=== PATIENT | female | born 1995 | race African-American/Black ===

== ENCOUNTER → 2021-11-10 15:23 | Outpatient (CLI) | payer OTHER, SELFPAY ==
--- NOTE | ~2021-11-10 | US_ITS ---
EXAMINATION: US OB <= 14 weeks fetus DATE: 11/10/2021 15:53 INDICATION: Uncertain dating of . TECHNIQUE: Real-time transabdominal pelvic ultrasound was performed. COMPARISON: None. FINDINGS: The uterus measures 16.0 x 7.1 x 10.2 cm. There is an intrauterine gestational sac. The crown r ump length measures 6.2 cm, which correlates with an estimated gestational age of 12 weeks and 4 day( s) (+/-) 1 week(s) and 1 day(s). heart motion is identified measuring 159 beats per minute (bpm ) by M-mode Doppler. There is a small hypoechoic subchorionic hematoma measuring 1.5 x 0.5 x 1.3 cm. The right ovary measures 4.1 x 2.1 x 3.5 cm. The left ovary measures 3.2 x 2.3 x 3.3 cm. There is no free fluid in the pelvis. IMPRESSION: 1. Single living intrauterine gestation with estimated date of delivery of 05/21/2022. 2. Small subchorionic hematoma. Reviewed, dictated and finalized at location A. IMPRESSION: 1. Single living intrauterine gestation with estimated date of delivery of . 2. Small subchorionic hematoma.
== END ==
PROVIDERS: PCP Obstetrics & Gynecology Gynecology; Visit Provider Nurse Practitioner
DX: O36.8911 Maternal care for other specified fetal problems, first trimester, fetus 1 (principal); Z3A.12 12 weeks gestation of pregnancy
CPT/HCPCS: 76801

== ENCOUNTER → 2021-12-08 10:42 | Outpatient (CLI) | payer OTHER, SELFPAY ==
--- NOTE | ~2021-12-08 | US_ITS ---
EXAMINATION: US OB limited DATE: 12/08/2021 11:08 INDICATION: Subchorionic hematoma during second trimester TECHNIQUE: Real-time ultrasound of the pelvis was performed. The interpreting radiologist was not pre sent for the study. COMPARISON: None. FINDINGS: There is a single living fetus in variable presentation. The placenta is posterior and not low-lying with caudal margin 4.3 cm from the internal cervical os. Small subchorionic hematoma with hypoechoic pocket measuring 12 x 10 x 9 mm at the right superior aspect of the placenta and 2.5 x 2.6 x 0.8 cm along the right inferior margin of the placenta. On the cine images there is suggestion of a small co mmunicating tract extending along the right margin of the placenta. heart rate is 163 beats per minute (bpm). The amniotic fluid volume is subjectively normal. IMPRESSION: 1. Single living fetus in variable presentation with heart rate of 163 bpm. 2. Increasing small subchorionic hematoma extending from superior to inferior along the right margin of the posterior placenta. Reviewed, dictated and finalized at location A. IMPRESSION: 1. Single living fetus in variable presentation with heart rate of 163 b pm. 2. Increasing small subchorionic hematoma extending from superior to inferior a long the right margin of the posterior placenta.
== END ==
PROVIDERS: PCP Obstetrics & Gynecology Gynecology; Visit Provider Obstetrics & Gynecology Gynecology
DX: O36.8920 Maternal care for other specified fetal problems, second trimester, not applicable or unspecified (principal); Z3A.00 Weeks of gestation of pregnancy not specified
CPT/HCPCS: 76815

== ENCOUNTER → 2021-12-23 10:00 | Outpatient (CLI) | payer OTHER, SELFPAY ==
--- NOTE | ~2021-12-23 | US_ITS ---
EXAMINATION: US OB /maternal detail DATE: 12/23/2021 10:40 INDICATION: Second trimester anatomic survey TECHNIQUE: Real-time ultrasound of the pelvis was performed. COMPARISON: None. FINDINGS: There is a single living fetus in breech presentation. The placenta is posterior and 1 cm from the in ternal cervical os. heart rate is 168 beats per minute (bpm). cardiac activity and movement are noted. The amniotic fluid index is subjectively normal. Four chamber heart and upper lip are not well imaged. The following anatomy was identified as n ormal: 3 vessel cord cord insertion kidneys urinary bladder stomach spine diaphragm ventricles cisterna magna cerebellum The following biometric data were obtained: Biparietal diameter (BPD): 4.3 cm; head circumference (HC): 16.3 cm; abdominal circumference (AC): 12 .9 cm; femur length (FL): 2.8 cm. These measurements are concordant. Estimated weight is 248 g +/- 37 g, which correlates with the 40th percentile when 05/21/2022 i s used as estimated date of delivery. As single measurements, these parameters are each equal to the following estimated gestational ages w ith ranges of +/- 2 standard deviations: BPD: 19 weeks 1 days ( 17 weeks 3 days - 20 weeks 6 days). HC: 19 weeks 0 days ( 17 weeks 4 days - 20 weeks 4 days). AC: 18 weeks 4 days ( 16 weeks 3 days - 20 weeks 4 days). FL: 18 weeks 4 days ( 16 weeks 6 days - 20 weeks 3 days). estimated gestational age based solely on measurements from this exam is 18 weeks 6 days +/- 1 weeks 2 days. IMPRESSION: 1. Single living fetus in breech presentation. 2. Estimated weight is 248 g +/- 37 g, which correlates with the previous percentile when 05/21 is used as estimated date of delivery. 3. Low-lying placenta. 4. Four chamber heart and upper lip not well imaged. Reviewed, dictated and finalized at location F. IMPRESSION: 1. Single living fetus in breech presentation. 2. Estimated weight is 248 g +/- 37 g, which correlates with the previous percentile when 05/21/2022 is used as estimated date of delivery. 3. Low-lying placenta. 4. Four chamber heart and upper lip not well imaged.
== END ==
PROVIDERS: PCP Obstetrics & Gynecology Gynecology; Visit Provider Obstetrics & Gynecology Gynecology
DX: Z36.9 Encounter for antenatal screening, unspecified (principal); O44.42 Low lying placenta NOS or without hemorrhage, second trimester; Z3A.00 Weeks of gestation of pregnancy not specified
CPT/HCPCS: 76805

== ENCOUNTER → 2022-01-07 09:41 | Outpatient (CLI) | payer OTHER, SELFPAY ==
--- NOTE | ~2022-01-07 | US_ITS ---
EXAMINATION: US OB follow up DATE: 01/07/2022 10:15 INDICATION: Low lying placenta. TECHNIQUE: Real-time ultrasound of the pelvis was performed. COMPARISON: Ultrasound 12/23/2021, 12/08/2021, 11/10/2021 FINDINGS: There is a single living fetus in vertex presentation. The placenta is posterior, 6.0 cm in the cerv ix. There is no subchorionic hematoma. heart rate is 161 beats per minute (bpm). The amniotic f luid volume is subjectively normal. The heart is normal. The lip is normal. IMPRESSION: 1. Single living fetus in vertex presentation. 2. Normal placenta. 3. Normal heart and lip. Reviewed, dictated and finalized at location A.
== END ==
PROVIDERS: PCP Obstetrics & Gynecology Gynecology; Visit Provider Obstetrics & Gynecology Gynecology
DX: O44.42 Low lying placenta NOS or without hemorrhage, second trimester (principal); Z3A.19 19 weeks gestation of pregnancy
CPT/HCPCS: 76816

== ENCOUNTER → 2022-02-28 09:15 | Outpatient (CLI) | payer OTHER, SELFPAY ==
--- NOTE | ~2022-02-28 | US_ITS ---
EXAMINATION: US OB follow up DATE: 02/28/2022 09:39 INDICATION: Size greater than dates during third trimester TECHNIQUE: Real-time ultrasound of the pelvis was performed. The interpreting radiologist was not pre sent for the study. COMPARISON: 01/07/2022 FINDINGS: There is a single living fetus in vertex presentation. The placenta is posterior and 8.4 cm from the internal cervical loss. cardiac activity and movement are noted. heart ra te is 150 beats per minute (bpm). The amniotic fluid index is 15.3 cm which is normal (normal range: 9.4 cm to 22.8 cm). The following biometric data were obtained: Biparietal diameter (BPD): 7.5 cm; head circumference (HC): 28.3 cm; abdominal circumference (AC): 24 .9 cm; femur length (FL): 5.2 cm. The femoral length to biparietal diameter ratio is greater than two standard deviations below the veronica n. These measurements are otherwise concordant. Estimated weight is 1319 g +/- 197 g, which correlates with the 65th percentile when 05/21/2022 is used as estimated date of delivery. As single measurements, these parameters are each equal to the following estimated gestational ages w ith ranges of +/- 2 standard deviations: BPD: 30 weeks 1 days ( 27 weeks 1 days - 33 weeks 2 days). HC: 31 weeks 0 days ( 28 weeks 0 days - 34 weeks 0 days). AC: 29 weeks 1 days ( 27 weeks 0 days - 31 weeks 2 days). FL: 28 weeks 0 days ( 25 weeks 6 days - 30 weeks 0 days). estimated gestational age based solely on measurements from this exam is 29 weeks 4 days +/- 2 weeks 0 days. IMPRESSION: 1. Single living fetus in vertex presentation. 2. Estimated weight is 1319 g +/- 197 g, which correlates with the 65th percentile when 022 is used as estimated date of delivery. 3. Normal amniotic fluid index. 4. Femoral length to biparietal diameter ratio greater than two standard deviations below the mean. Reviewed, dictated and finalized at location B. IMPRESSION: 1. Single living fetus in vertex presentation. 2. Estimated weight is 1319 g +/- 197 g, which correlates with the 65th p ercentile when 05/21/2022 is used as estimated date of delivery. 3. Normal amniotic fluid index. 4. Femoral length to biparietal diameter ratio greater than two standard deviat ions below the mean.
== END ==
PROVIDERS: PCP Advanced Practice Midwife; Visit Provider Advanced Practice Midwife
DX: O24.414 Gestational diabetes mellitus in pregnancy, insulin controlled (principal); Z79.4 Long term (current) use of insulin; Z3A.29 29 weeks gestation of pregnancy
CPT/HCPCS: 76816

== ENCOUNTER → 2022-03-30 14:54 | Outpatient (CLI) | payer OTHER, SELFPAY ==
--- NOTE | ~2022-03-30 | US_ITS ---
EXAMINATION: US OB follow up DATE: 03/30/2022 15:20 INDICATION: Gestational diabetes TECHNIQUE: Real-time transabdominal obstetric ultrasound. FINDINGS: Comparison to multiple prior studies sequentially, with oldest reviewed study dated 022. There is a single living fetus in vertex presentation. The placenta is posterior without placenta pr evia. cardiac activity and movement is noted with a heart rate of 151 beats per minute. T he amniotic fluid volume is normal. CHITRA measures 15.3 cm. The following biometric data were obtained: BPD: 86mm corresponds to gestational age 34 weeks 4 days. Head circumference: 322mm corresponds to gestational age 36 weeks 2 days. Abdominal circumference: 284mm corresponds to gestational age 32 weeks 3 days. Femur length: 63mm corresponds to gestational age 32 weeks 4 days. Estimated weight: 2106grams +/- 316grams, 55.1% by Hadlock method.] IMPRESSION: 1. Single living intrauterine in vertex presentation with an estimated gestational age of 32 weeks 4 days by inititial ultrasound. Appropriate interval growth. 2. Normal placenta. Reviewed, dictated and finalized at location A. IMPRESSION: 1. Single living intrauterine in vertex presentation with an estimat ed gestational age of 32 weeks 4 days by inititial ultrasound. Appropriate int erval growth. 2. Normal placenta.
== END ==
PROVIDERS: PCP Advanced Practice Midwife; Visit Provider Advanced Practice Midwife
DX: O24.414 Gestational diabetes mellitus in pregnancy, insulin controlled (principal); Z3A.32 32 weeks gestation of pregnancy
CPT/HCPCS: 76816

== ENCOUNTER 2022-04-06 05:13 | Observation (INO) | payer OTHER, SELFPAY ==
[2022-04-06] VITALS (43 sets, daily range): BP systolic 115–140; BP diastolic 54–84; PULSE 84–137; TEMP 36.8–37; O2SAT 98–100; BMI 46.6
--- NOTE | ~2022-04-06 | US_ITS ---
EXAMINATION: US right upper quadrant DATE: 04/06/2022 08:10 INDICATION: Right upper quadrant abdominal pain. Third trimester of . TECHNIQUE: Multiple grayscale and Doppler ultrasound images of the abdomen were obtained. COMPARISON: None FINDINGS: The visualized portions of the head and body of the pancreas are normal. The liver is anu l without focal lesion. There is normal flow in main portal vein. The gallbladder is normal in size a nd contains gallstones. No gallbladder wall thickening or sonographic Cedeno sign. The common duct is normal and measures 3 mm. IMPRESSION: 1. Cholelithiasis. No evidence of acute cholecystitis. Reviewed, dictated and finalized at location A.
[2022-04-06 06:07] LABS: Basophils Percent Auto 0.2 % (0.2-1.2); Hematocrit 35.1 % (37.0-47.0); Hemoglobin 10.8 g/dL (12.0-15.0); Immature Granulocyte Absolute 0.07 K/mm3 (0.00-0.031); Immature Granulocyte Percent A 0.5 % (0-0.5); Lymphocytes Absolute Auto 1.22 K/mm3 (0.9-3.2); Lymphocytes Percent Auto 9.5 % (18.3-44.2); Mean Corpuscular HGB Conc 30.8 g/dl (32-36); Mean Corpuscular Hemoglobin 26.7 pg (26-34); Mean Corpuscular Volume 86.7 fl (80-100); Mean Platelet Volume 10.8 fl (7.4-10.4); Monocytes Absolute Auto 0.7 K/mm3 (0.1-0.6); Monocytes Percent Auto 5.1 % (2.6-8.5); Neutrophils Absolute Auto 10.9 K/mm3 (1.3-6.7); Neutrophils Percent Auto 84.7 % (45.5-73.1); Platelet Count Result 294 k/mm3 (150-375); Red Blood Count 4.05 M/mm3 (4.2-5.4); Red Cell Distribution Width 15.9 % (11.5-14.5); White Blood Count 12.9 K/mm3 (4.5-10.0)
[2022-04-06 06:23] LABS: Lipase 43 U/L (23-300)
[2022-04-06 06:26] LABS: Alanine Aminotransferase 74 U/L (6-35); Alkaline Phosphatase 176 U/L (38-126); Anion Gap 13 mmol/L (8-16); Aspartate Amino Transferase 85 U/L (14-36); Bilirubin,Total 0.8 mg/dL (0.2-1.3); Blood Urea Nitrogen 8 mg/dL (7-17); Calcium 9.3 mg/dL (8.4-10.2); Carbon Dioxide 22 mmol/L (22-30); Chloride 105 mmol/L (98-107); Estimated Glomerular Filt Rate > 60; Glucose 125 mg/dL (65-110); Sodium 140 mmol/L (137-145)
--- NOTE | 2022-04-06 06:45 | OBADM ---
This patient, Enid Rogers, admitted to the OB room OB Post 117 for observation. Patient/family oriented to hospital policies and general routines including ID bracelet, bed and alarms, visiting hours, pain management, procedures, bathroom and other care routines, personal items, smoking policy, room service/diet, and visiting hours. Patient/Family are encouraged to report perceived risks to care and to ask questions if they do not understand what they are told or what they should do.
[2022-04-06] MEDS: LACTATED RINGERS 1,000 ML 999 ML IV CONT (07:02)
[2022-04-06 07:04] LABS: Add Urine Microscopic? YES; Appearance Urine Cloudy (Clear); Bacteria Urine Trace /hpf; Bilirubin Urine Negative (Negative); Blood Urine Negative (Negative); Color Urine Amber (Yellow); Glucose Urine UA Negative (Negative); Ketones Urine 1+ mg/dL (Negative); Leukocyte Esterase Ur Trace LEU/UL (Negative); Mucus Urine Rare /lpf; Nitrate Urine Negative (Negative); Protein Urine 1+ mg/dL (Negative); Specific Grav Ur 1.029 (1.001-1.035); Squamous Epithelial Cell Urine Many /hpf (Few); WBC Urine 0-3 /hpf
--- NOTE | 2022-04-06 08:05 | PC.NURSE ---
Pt back from U/S and Eliana GRIJALVAM in to see and assess pt. Bedside U/S confirms vertex presentation. Orders received. 24 hr urine started at 0520 with initial void.
--- NOTE | 2022-04-06 08:40 | PC.NURSE ---
Eliana GRIJALVAM informed of U/S report and pt has had one contraction since back from U/S.
[2022-04-06 09:10] LABS: Amylase 65 U/L (30-110); Uric Acid 3.5 mg/dL (2.5-7.5)
--- NOTE | 2022-04-06 09:11 | PC.NURSE ---
Dr. White's office notified of consult
[2022-04-06 09:27] LABS: Glucose Point of Care 105 mg/dl (65-105)
[2022-04-06 09:56] LABS: Total Protein Urine Random 8 mg/dL; Ur Ttl Prot Creatinine Ratio 0.03 mg/mg (0-0.20)
--- NOTE | 2022-04-06 11:04 | PM.CNGS ---
Assessment and Plan Assessment and plan (1) Cholelithiasis: Code(s): K80.20 - Calculus of gallbladder without cholecystitis without obstruction Status: Chronic Assessment and Plan: US showed cholelithiasis. No evidence of acute cholecystitis. Biliary colic is likely the cause of her abdominal pain. She has had multiple episodes of similar type pain in the past as well. Her abdominal pain has completely resolved and her exam is benign. We would recommend that she try to manage this with dietary modification and following a strict low fat diet to help prevent future attacks and complications from the gallstones. It is okay from our standpoint to discharge the patient today on a low fat diet and follow-up with Dr. White in our office after her to further discuss scheduling a laparoscopic cholecystectomy. Thank you for allowing us to see the patient in consultation. (2) Third trimester : Code(s): Z34.93 - Encounter for supervision of normal , unspecified, third trimester Status: Chronic Assessment and Plan: 33 weeks and it appears she may have gestational diabetes. Raises her risks with surgery. Recommend follow-up after her to discuss cholecystectomy. (3) Anemia during : Code(s): O99.019 - Anemia complicating , unspecified trimester Status: Chronic Plan I have discussed the patient's case and plan of care with Dr. White. History of Present Illness Consult details Consult date: 04/06/22 Reason for consult: gallstones Requesting physician: Anastasia Paredes MD Narrative: This is a 26-year-old woman who is 33 weeks gestation, who presented to the OB department with complaints of right upper quadrant abdominal pain overnight. She actually was in the OB department yesterday due to decreased movement, but movement improved and she was discharged yesterday. Last night for dinner, she ate chili with sour cream and cheese. She then went to bed and woke up around midnight with an acute onset of severe right upper quadrant abdominal pain. She developed nausea and 2 episodes of vomiting. She then decided to come into the ER for evaluation. She reports having similar episodes in the past, but the pain would improve with time. This time her pain was persistent throughout the night. Right upper quadrant abdominal ultrasound showed cholelithiasis, but no other evidence of cholecystitis. [place] [address], total bilirubin 0.8, normal lipase, AST 85, ALT 74, alk-phos 176. She has been admitted to the OB department. Our service was consulted for cholelithiasis. This morning, her abdominal pain has completely resolved. She denies any pain at this time. Denies any nausea or vomiting since admission. Only previous abdominal surgery was a delivery. Review of Systems Review of Systems: All systems reviewed & are unremarkable except as noted in HPI and below PMFSH Past Medical History Medical History (Updated 04/06/22 @ 11:22 by KEITH Olmos) Anemia during Surgical History Surgical History History of delivery Family History Family History Other No significant family history Social History Social History Smoking status: Never smoker Alcohol intake: never Substance use: never Meds Home Medications and Allergies Home Medications Medication Instructions Recorded Confirmed Type aspirin 81 mg tablet 81 mg PO DAILY 04/05/22 04/06/22 History prenat.vits,kerry,exs-[id number] 1 tablet PO DAILY 04/05/22 04/06/22 History ergocalciferol (vitamin D2) 1,250 50,000 unit PO WEEKLY 04/06/22 04/06/22 History mcg (50,000 unit) capsule ferrous sulfate 325 mg (65 mg 325 mg PO DAILY 04/06/22
[2022-04-06 11:16] LABS: Glucose Point of Care 127 mg/dl (65-105)
--- NOTE | 2022-04-06 17:24 | PM.OBTRLD ---
OB - Triage/Final Diagnosis Visit Information Reason for evaluation: other (abdominal pain. Cholelithiasis) Comments/Additional reasons for admission: I have assessed the risk for this patient, Enid Rogers, and determined that she would benefit from observation care. Evaluation Laboratory results: Laboratory Tests 04/06/22 04/06/22 04/06/22 05:51 05:51 05:51 WBC 12.9 H RBC 4.05 L Hgb 10.8 L Hct 35.1 L MCV 86.7 MCH 26.7 MCHC 30.8 L RDW 15.9 H Plt Count 294 MPV 10.8 H Immature Gran % (Auto) 0.5 Neut % (Auto) 84.7 H Lymph % (Auto) 9.5 L Camp % (Auto) 5.1 Eos % (Auto) 0.0 Baso % (Auto) 0.2 Lymph # (Auto) 1.22 Camp # (Auto) 0.7 H Eos # (Auto) 0.0 Baso # (Auto) 0.0 Abs Immat Gran (auto) 0.07 H Absolute Neuts (auto) 10.9 H Absolute Nucleated RBC 0.0 Nucleated RBC % 0.0 Sodium 140 Potassium 4.0 Chloride 105 Carbon Dioxide 22 Anion Gap 13 BUN 8 Creatinine 0.70 Estim Creat Clear Calc Not Reportable Estimated GFR > 60 Glucose 125 H POC Capillary Glucose Uric Acid Calcium 9.3 Total Bilirubin 0.8 AST 85 H ALT 74 H Alkaline Phosphatase 176 H Total Protein 7.0 Albumin 4.0 Amylase Lipase 43 Urine Color Urine Appearance Urine pH Ur Specific [place] Urine Protein Urine Glucose (UA) Urine Ketones Ur Blood (Man) Urine Nitrate Urine Bilirubin Urine Urobilinogen Leukocyte Esterase Rfl Urine RBC Urine WBC Ur Squamous Epith Cells Urine Bacteria Urine Mucus U Random Total Protein Urine Creatinine Protein/Creat Ratio 2 04/06/22 04/06/22 04/06/22 06:52 08:27 08:27 WBC RBC Hgb Hct MCV MCH MCHC RDW Plt Count MPV Immature Gran % (Auto) Neut % (Auto) Lymph % (Auto) Camp % (Auto) Eos % (Auto) Baso % (Auto) Lymph # (Auto) Camp # (Auto) Eos # (Auto) Baso # (Auto) Abs Immat Gran (auto) Absolute Neuts (auto) Absolute Nucleated RBC Nucleated RBC % Sodium Potassium Chloride Carbon Dioxide Anion Gap BUN Creatinine Estim Creat Clear Calc Estimated GFR Glucose POC Capillary Glucose Uric Acid 3.5 Calcium Total Bilirubin AST ALT Alkaline Phosphatase Total Protein Albumin Amylase 65 Lipase Urine Color Sole Urine Appearance Cloudy H Urine pH 6.0 Ur Specific [place] 1.029 Urine Protein 1+ H Urine Glucose (UA) Negative Urine Ketones 1+ H Ur Blood (Man) Negative Urine Nitrate Negative Urine Bilirubin Negative Urine Urobilinogen 2.0 H Leukocyte Esterase Rfl Trace H Urine RBC 6-10 H Urine WBC 0-3 Ur Squamous Epith Cells Many H Urine Bacteria Trace Urine Mucus Rare U Random Total Protein 8 Urine Creatinine 234.0 Protein/Creat Ratio 2 0.03 04/06/22 04/06/22 09:24 11:09 WBC RBC Hgb Hct MCV MCH MCHC RDW Plt Count MPV Immature Gran % (Auto) Neut % (Auto) Lymph % (Auto) Camp % (Auto) Eos % (Auto) Baso % (Auto) Lymph # (Auto) Camp # (Auto) Eos # (Auto) Baso # (Auto) Abs Immat Gran (auto) Absolute Neuts (auto) Absolute Nucleated RBC Nucleated RBC % Sodium Potassium Chloride Carbon Dioxide Anion Gap BUN Creatinine Estim Creat Clear Calc Estimated GFR Glucose POC Capillary Glucose 105 127 H Uric Acid Calcium Total Bilirubin AST ALT Alkaline Phosphatase Total Protein Albumin Amylase Lipase Urine Color Urine Appearance Urine pH Ur Specific [place] Urine Protein Urine Glucose (UA) Urine Ketones Ur Blood (Man) Urine Nitrate Urine Bilirubin Urine Urobilinogen Leukocyte Esterase Rfl Urine RBC Urine WBC Ur Squamous Epith Cells Urine Bacteria Urine Mucus U Rando
== END 2022-04-06 15:55 | disposition home or self-care (01) ==
LOC: ANHLDR 04-07 10:42 → ANHOBPP 04-07 10:42
PROVIDERS: Obstetrics & Gynecology Gynecology; Admitting Provider Advanced Practice Midwife; PCP Advanced Practice Midwife; Visit Provider Advanced Practice Midwife
DX: O99.613 Diseases of the digestive system complicating pregnancy, third trimester (principal); K80.20 Calculus of gallbladder without cholecystitis without obstruction; O26.893 Other specified pregnancy related conditions, third trimester; R10.11 Right upper quadrant pain; O99.013 Anemia complicating pregnancy, third trimester; D64.9 Anemia, unspecified; O34.219 Maternal care for unspecified type scar from previous cesarean delivery; Z3A.33 33 weeks gestation of pregnancy; Z79.82 Long term (current) use of aspirin; Z79.4 Long term (current) use of insulin; Z79.899 Other long term (current) drug therapy
CPT/HCPCS: 36415; 76705; 80053; 81001; 82150; 82570; 82948; 83690; 84156; 84550; 85025; 96361; 96374; G0378; G0379; J0131; J7120

== ENCOUNTER 2022-04-07 09:35 | Outpatient (NON) | payer OTHER, SELFPAY ==
[2022-04-07 09:35] VITALS: BMI 47.3
[2022-04-07 10:28] LABS: Collection Time Urine 24 HOURS
[2022-04-07 10:47] LABS: Creatinine Urine 92.3 mg/dL; Patient Weight 276 Lbs; Total Protein Urine Random 8 mg/dL
[2022-04-07 10:52] LABS: Creatinine Clearance Urine 155.9 ml/min (75-125); Total Protein Urine 24 Hr 176 mg/24hr (28-141); Total Volume 24 Hour Urine 2200 ml
== END 2022-04-07 09:36 | disposition home or self-care (01) ==
LOC: ANHOBOP 09:41
PROVIDERS: PCP Advanced Practice Midwife; Visit Provider Obstetrics & Gynecology Gynecology
DX: R74.01 Elevation of levels of liver transaminase levels (principal)
CPT/HCPCS: 81050; 82575; 84156

== ENCOUNTER → 2022-05-03 10:37 | Outpatient (CLI) | payer OTHER, SELFPAY ==
--- NOTE | ~2022-05-03 | US_ITS ---
EXAMINATION: US OB follow up DATE: 05/03/2022 11:12 INDICATION: Gestational diabetes, third trimester TECHNIQUE: Real-time ultrasound of the pelvis was performed. The interpreting radiologist was not pre sent for the study. COMPARISON: 03/30/2022 FINDINGS: There is a single living fetus in vertex presentation. The placenta is fundal. cardia c activity and movement are noted. heart rate is 145 beats per minute (bpm). The amniotic fluid index is 7.2 cm which is low (normal range: 7.5 cm to 24.4 cm). The following biometric data were obtained: Biparietal diameter (BPD): 9.2 cm; head circumference (HC): 33.5 cm; abdominal circumference (AC): 33 .5 cm; femur length (FL): 7.2 cm. These measurements are concordant. Estimated weight is 3209 g +/- 481 g, which correlates with the 59th percentile when 05/21/2022 is used as estimated date of delivery. As single measurements, these parameters are each equal to the following estimated gestational ages w ith ranges of +/- 2 standard deviations: BPD: 37 weeks 4 days ( 34 weeks 2 days - 40 weeks 5 days). HC: 38 weeks 3 days ( 35 weeks 5 days - 41 weeks 1 days). AC: 37 weeks 3 days ( 34 weeks 3 days - 40 weeks 4 days). FL: 36 weeks 6 days ( 33 weeks 5 days - 40 weeks 0 days). estimated gestational age based solely on measurements from this exam is 37 weeks 4 days +/- 2 weeks 4 days. IMPRESSION: 1. Single living fetus in vertex presentation. 2. Oligohydramnios. 3. Estimated weight is 3209 g +/- 481 g, which correlates with the 59th percentile when 022 is used as estimated date of delivery. Reviewed, dictated and finalized at location B. GENCY RESPONSE OFFICER IMPRESSION: 1. Single living fetus in vertex presentation. 2. Oligohydramnios. 3. Estimated weight is 3209 g +/- 481 g, which correlates with the 59th p ercentile when 05/21/2022 is used as estimated date of delivery.
== END ==
PROVIDERS: PCP Advanced Practice Midwife; Visit Provider Advanced Practice Midwife
DX: O24.414 Gestational diabetes mellitus in pregnancy, insulin controlled (principal); Z79.4 Long term (current) use of insulin; O41.03X0 Oligohydramnios, third trimester, not applicable or unspecified; Z3A.00 Weeks of gestation of pregnancy not specified
CPT/HCPCS: 76816

== ENCOUNTER 2022-05-04 11:43 | Outpatient (RCR) | payer OTHER, SELFPAY ==
--- NOTE | 2022-04-05 04:48 | PC.NURSE ---
0442- called Iwona Louie [facility] informed of pt admission for DFM since 1629 on 04-04-22. FHT reviewed. reactive tracing and pt marking baby movement. order to d/c home with instructions on when to return to L&D or office. pt educated on importance of movement and when to come to L&D for eval. no questions from pt. pt d/c home.
--- NOTE | 2022-04-05 07:40 | P.PNOB_ITS ---
OB - Triage/Final Diagnosis Visit Information Reason for evaluation: decreased movement (Resolved. Feeling multiple feta l movements after arrival to hospital. ) Comments/Additional reasons for admission: I have assessed the risk for this patient, Enid Rogers, and determined that s he would benefit from observation care.
--- NOTE | 2022-04-05 07:40 | PM.OBTRLD ---
OB - Triage/Final Diagnosis Visit Information Reason for evaluation: decreased movement (Resolved. Feeling multiple movements after arrival to hospital. ) Comments/Additional reasons for admission: I have assessed the risk for this patient, Enid Rogers, and determined that she would benefit from observation care.
[2022-05-04 12:12] LABS: Basophils Percent Auto 0.2 % (0.2-1.2); Eosinophils Absolute Auto 0.1 K/mm3 (0-0.3); Eosinophils Percent Auto 0.6 % (0-4.4); Hematocrit 32.8 % (37.0-47.0); Hemoglobin 10.1 g/dL (12.0-15.0); Immature Granulocyte Absolute 0.05 K/mm3 (0.00-0.031); Immature Granulocyte Percent A 0.5 % (0-0.5); Lymphocytes Absolute Auto 1.67 K/mm3 (0.9-3.2); Lymphocytes Percent Auto 16.1 % (18.3-44.2); Mean Corpuscular HGB Conc 30.8 g/dl (32-36); Mean Corpuscular Hemoglobin 25.9 pg (26-34); Mean Corpuscular Volume 84.1 fl (80-100); Mean Platelet Volume 11.4 fl (7.4-10.4); Monocytes Absolute Auto 0.8 K/mm3 (0.1-0.6); Monocytes Percent Auto 7.2 % (2.6-8.5); Neutrophils Absolute Auto 7.8 K/mm3 (1.3-6.7); Neutrophils Percent Auto 75.4 % (45.5-73.1); Platelet Count Result 266 k/mm3 (150-375); Red Cell Distribution Width 16.9 % (11.5-14.5); White Blood Count 10.4 K/mm3 (4.5-10.0)
[2022-05-04 13:03] VITALS: BP 127/79; PULSE 125
[2022-05-05 17:06] LABS: Rapid Plasma Reagin Non-Reactive (NonReactive)
== END 2022-05-26 07:43 | disposition home or self-care (01) ==
LOC: ANHOBOP 11:43
PROVIDERS: PCP Advanced Practice Midwife; Visit Provider Obstetrics & Gynecology Gynecology
DX: O36.8130 Decreased fetal movements, third trimester, not applicable or unspecified (principal); Z3A.33 33 weeks gestation of pregnancy; Z3A.37 37 weeks gestation of pregnancy
CPT/HCPCS: 36415; 59025; 85025; 86592; 86850; 86900; 86901

== ENCOUNTER 2022-05-05 09:52 | Inpatient (IN) | payer OTHER, SELFPAY ==
[2022-05-05] VITALS (41 sets, daily range): BP systolic 64–126; BP diastolic 20–78; PULSE 60–100; RESP 15–23; TEMP 35.9–36.7; O2SAT 99–100; BMI 46.7
--- NOTE | 2022-05-05 07:47 | PM.IMHP ---
H&P: HPI History of Present Illness Date/Time: 05/05/22 07:47 Chief Complaint: repeat csection Narrative: 27 yo at 37 5/7 here for repeat csection secondary to oligohydramnios. complicated by gestational hypertension as well as GDMA2. NST's have been reactive throughout and growth scans have been normal. Patient also with new diagnosis of gallstones 04/15 with one flare up of pain. Patient with prior csection for failure to progress in labor at 37 wks with preeclampsia. Plan to proceed with repeat csection. labs O+, RPR -, Rubella immune, HIV -, GBS +. Review of Systems Review of Systems: Good movement, no contractions. All systems reviewed & are unremarkable except as noted in HPI and below (HPI ) [facility] Past Medical History Medical History (Updated 05/05/22 @ 07:57 by nAastasia Paredes MD) Anemia during Chlamydia 2019 Cholelithiasis Surgical History Surgical History (Updated 05/05/22 @ 07:57 by Anastasia Paredes MD) History of delivery 08/15 37 wks, preeclampsia 6#4oz Family History Family History (Updated 05/04/22 @ 12:36 by Cristina Jimenes, MARLO) Grandparent Diabetes mellitus Mother Diabetes mellitus Cancer of nasal cavity and sinus Other No significant family history Social History Social History Smoking status: Never smoker Alcohol intake: never Substance use: former Other substance usage details: Marijuana prior to Spiritual care concerns: No Meds Home Medications and Allergies Home Medications Medication Instructions Recorded Confirmed Type aspirin 81 mg tablet 81 mg PO DAILY 04/05/22 05/04/22 History prenat.vits,kerry,[id number] 1 tablet PO DAILY 04/05/22 05/04/22 History ergocalciferol (vitamin D2) 1,250 50,000 unit PO WEEKLY 04/06/22 05/04/22 History mcg (50,000 unit) capsule ferrous sulfate 325 mg (65 mg 325 mg PO DAILY 04/06/22 05/04/22 History iron) tablet insulin NPH isoph U-100 human 100 13 unit subcut HS 04/06/22 05/04/22 History unit/mL subcutaneous suspension (Humulin N NPH U-100 Insulin (isophane susp)) Allergies Allergy/AdvReac Type Severity Reaction Status Date / Time No Known Allergies Allergy Verified 04/05/22 04:53 Exam Const: General: healthy appearing and alert Orientation/consciousness: patient oriented x3 Resp: Effort & Inspection: normal respiratory effort GI: GI Palp: Yes Soft to palpation, No Tenderness to palpation present (GI) and Yes Other GI palpation findings present (gravid with fundal height 39) : External Female Exam: normal external appearance Speculum Exam - Vagina: normal appearance of the vagina and normal vaginal discharge Speculum Exam - Cervix: normal appearance of the cervix Manual OB Exam: Not dilated nor effaced Neuro: General: patient oriented x3 Assessment and Plan Assessment and plan (1) 37 weeks gestation of : Code(s): Z3A.37 - 37 weeks gestation of Status: Acute Assessment and Plan: 37 10/29 (2) History of delivery: Code(s): Z98.891 - History of uterine scar from previous surgery Status: Acute Assessment and Plan: Proceed with repeat csection (3) Oligohydramnios: Code(s): O41.00X0 - Oligohydramnios, unspecified trimester, not applicable or unspecified Status: Acute (4) Gestational HTN: Code(s): O13.9 - Gestational [-induced] hypertension without significant proteinuria, unspecified trimester Status: Acute (5) GDM, class A2: Code(s): O24.419 - Gestational diabetes mellitus in , unspecified control Status: Acute
--- NOTE | 2022-05-05 10:37 | LDADM ---
This patient, Enid Rogers, was admitted to Labor/Delivery/Recovery 119 on 05/05/22 at 09:52. Plans for labor, pain management and were discussed with patient. Patient/family oriented to hospital policies and general routines including ID bracelet, bed and alarms, visiting hours, pain management, procedures, bathroom and other care routines, personal items, smoking policy, room service/diet and guest tray routines, infant security routines, and visiting hours. Patient/Family are encouraged to report perceived risks to care and to ask questions if they do not understand what they are told or what they should do. See OBIX for further documentation.
[2022-05-05] MEDS: LACTATED RINGERS 1,000 ML 125 ML IV CONT (10:45)
[2022-05-05 11:50] LABS: Glucose Point of Care 70 mg/dl (65-105)
--- NOTE | 2022-05-05 11:50 | P.PNAN_ITS ---
Anes - Initial Pre Proc Eval Procedure: Operation Date: 05/05/22 12:00 Proposed Procedures p Repeat Section - Anastasia Paredes MD Date/Time: 05/05/22 11:50 Surgeon: Anastasia Paredes MD Pre Op Diagnosis: C/S Patient Data Age: 27 Gender: F Height: 1.63 m Weight: 123.4 kg Last Vital Signs Pulse 99 05/05/22 10:31 BP 101/43 L 05/05/22 10:31 O2 Del Method Room Air 05/05/22 10:37 Allergies Allergy/AdvReac Type Severity Reaction Status Date / Time No Known Allergies Allergy Verified 04/05/22 04:53 Home Medications Medication Instructions Recorded Confirmed Type aspirin 81 mg tablet 81 mg PO DAILY 04/05/22 05/04/22 History prenat.vits,kerry,ivn-meww-ulcmn 1 tablet PO DAILY 04/05/22 05/04/22 History ergocalciferol (vitamin D2) 1,250 50,000 unit PO WEEKLY 04/06/22 05/04/22 History mcg (50,000 unit) capsule ferrous sulfate 325 mg (65 mg 325 mg PO DAILY 04/06/22 05/04/22 History iron) tablet insulin NPH isoph U-100 human 100 13 unit subcut HS 04/06/22 05/04/22 History unit/mL subcutaneous suspension (Humulin N NPH U-100 Insulin (isophane susp)) Patient hx anesthesia problems: none Family hx anesthesia problems: none Results Review: All pre-operative results and documents have been reviewed as part of the pre- operative evaluation. [facility] Past Medical History Medical History Anemia during Chlamydia 2019 Cholelithiasis Surgical History Surgical History History of delivery 08/15 37 wks, preeclampsia 6#4oz Family History Family History Grandparent Diabetes mellitus Mother Diabetes mellitus Cancer of nasal cavity and sinus Other No significant family history Social History Social History Smoking status: Never smoker Second hand tobacco smoke exposure: No Alcohol intake: never Substance use: former Other substance usage details: Marijuana prior to Spiritual care concerns: No Anes - Eval Final PreProcedure Day of Procedure 05/05/22 11:50 Patient weight: morbidly obese Heart: regular rate and rhythm Lungs: clear to auscultation Airway: Mallampati scale class II Neurological: alert and oriented Last oral intake: >/= 8 hours ASA classification: III Emergent: no Anesthetic plan: proceed Anesthesia type and monitoring: regional spinal and standard monitoring Results Review: All pre-operative results and documents have been reviewed as part of the pre- operative evaluation. Informed Consent: The patient's anesthetic plan and its attendant risks and benefits were discussed with the patient/family/POA. Questions were solicited and answers provided to the satisfaction of the patient/family/POA.
--- NOTE | 2022-05-05 11:55 | WPDHPUPDATE1 ---
History and Physical Update Update Date/Time: 05/05/22 11:55 History and Physical has been reviewed, including an updated exam of the patient. There are NO changes in the patient's condition. Risks, benefits, and alternatives have been discussed and questions answered. Patient agrees to proceed with procedure.
[2022-05-05] MEDS: ceFAZolin 3 GM/D5W 100 ML 100 ML IVPB (12:02)
--- NOTE | 2022-05-05 12:57 | P.OP_ITS ---
Procedure Note - Detailed Date of Procedure 05/05/22 Pre-op Diagnosis Intrauterine at 37 and 5 7th weeks oligohydramnios gestational diabetes insulin requiring gestational hypertension previous section Post-op Diagnosis Same Procedure Performed repeat low-transverse section Surgeon Anastasia Paredes MD Anesthesia Spinal Findings male vertex position weighing 7lb with 9 and 9 Apgars. Normal-appearing tubes, ovaries, and uterus. Description of Procedure The patient is taken to the operating room and placed under anesthesia in the dorsal supine position. She was prepped and draped in usual sterile fashion. Pfannenstiel skin incision was made with a scalpel and carried down to the underlying layer of fascia which was nicked in the midline. The incision was extended laterally using West scissors. Ochsner was used to tent the fascia which was then dissected off with sharp dissection. The rectus muscles were in the midline and the peritoneum tented with a Peon and entered with Metzenbaum scissors. The incision was extended with blunt traction. The bladder blade is placed and the vesicouterine peritoneum grasped with a Peon and entered with sharp dissection laterally and blunt dissection the bladder flap was created. Bladder blade is replaced. Lower uterine segment was incised in a transverse fashion with the scalpel. The incision was extended with blunt traction. The amniotic fluid is [id number]. The 's head was brought up into the incision and delivered while the apartment community assistant manager applied fundal pressure. The remainder of the infant was fully delivered and the cord clamped and cut. The infant was handed to the waiting nursery nurse. The placenta was removed using manual traction after cord gases and blood were drawn. The Klio O retractor was placed and the uterus is closed in a running locked fashion of 0 Monocryl with the same suture used to imbricate the obtain hemostasis. The gutters were irrigated and the tubes and ovaries inspected and good hemostasis is noted at the incision. The Kilo O retractor was removed. The fascia was then closed using 0 Vicryl in a running fashion. The subcutaneous tissues are irrigated and made hemostatic using Bovie cautery. Skin incision was closed using 4-0 Vicryl in a subcuticular fashion. Dermaflex was placed over the incision. Sponge, needle, and instrument counts are correct per the OR staff. The patient is taken to recovery in stable condition. She received Ancef prior to incision. Estimated Blood Loss 445 Drains Yes ( Manning catheter) Packing No Pathology Yes ( placenta) Complications No immediate complications Condition Stable Disposition Floor
--- NOTE | 2022-05-05 13:01 | PM.OBDSVD ---
DS: Admitting Diagnosis Discharge Date 05/07/22 Admitting Diagnosis intrauterine at 37 and 5 7th weeks oligohydramnios gestational diabetes insulin requiring gestational hypertension previous section DS: Discharge Diagnosis Discharge Diagnosis (1) delivery delivered: Code(s): O82 - Encounter for delivery without indication Status: Acute (2) GDM, class A2: Code(s): O24.419 - Gestational diabetes mellitus in , unspecified control Status: Acute (3) Gestational HTN: Code(s): O13.9 - Gestational [-induced] hypertension without significant proteinuria, unspecified trimester Status: Acute (4) Oligohydramnios: Code(s): O41.00X0 - Oligohydramnios, unspecified trimester, not applicable or unspecified Status: Acute (5) 37 weeks gestation of : Code(s): Z3A.37 - 37 weeks gestation of Status: Acute OB - DS: Summary OB Procedures : NST, PIH Mgmt and Ultrasound OB Procedures Intrapartum: low cervical, transverse OB Procedures: : None Peripartum Data Infant Delivery Method: Section Procedures: Procedures Operation Date: 05/05/22 12:00 <No data on this case meets the specified criteria> complications: none Status at Discharge Functional status at discharge: independent ambulation Overall status at discharge: patient is progressing back to baseline Time Spent with Patient Time attestation: Total time spent providing and/or coordinating discharge services: DS: Data Data Completed and Pending Labs on day of discharge: Labs from last 24 hours 05/05/22 11:46 POC Capillary Glucose 70 Discharge Plan Discharge Attending physician on discharge: Anastasia Paredes Discharging Clinician: Saundra James Anticipated Discharge Date/Time: 05/07/22 13:03 Patient Disposition: Home, Self-Care Activity: may shower, may drive after 2 weeks and pelvic rest Diet: regular Wound Care Instructions: incision open to air Discharge Instructions: Education: Mom and Baby Guide Given to: Patient Follow-Up: Call your delivering provider's office for an appointment to be seen in: 1 week Mom and baby should come to the [facility] for the follow-up appointment. Appointment Date/Time: 05/08/2022 at 1100am What to expect at your follow-up visit: Call [phone] if you are unable to keep your appointment time. BREAST CARE: * Wear a snug supportive bra. * For engorgement discomfort: Bottle Feeding: * May apply ice packs ABDOMINAL INCISION: * Allow incision to air dry * Do NOT use lotions for powders on your incision * When showering, allow soap and water to run over the incision, but do not wash incision PERINEAL CARE: * Until bleeding stops, use your jennifer bottle after urinating * Change your pad frequently throughout the day * No tub baths until seen by your physician - You may shower ACTIVITY: * Rest as much as possible. * Do not exercise or lift anything heavier than your baby (such as laundry or other children.) * Avoid stairs or driving as much as possible. * Do not put anything into the vagina. No douching, tampons, or sexual activity until seen by physician. NOTIFY PHYSICIAN IF YOU HAVE ANY QUESTIONS OR IF ANY OF THE FOLLOWING SYMPTOMS OCCUR: * If your perineal area becomes red, swollen, or more painful than what you have experienced in the hospital. * If your vaginal bleeding becomes foul smelling. * If your vaginal bleeding becomes more heavy than a period or if your bleeding changes from pink to bright red. However, you may pass an occasional walnut-sized clot once or twice for the first week . * If you experience a sharp, shooting pain in you calves. * If you discover a hard, reddened area on your breast or if you experience flu-like symptoms. DIET: * Eat regular, wel
[2022-05-05] MEDS: OXYTOCIN 30 UNITS/NS 500 ML 30 UNITS/500 ML BAG 125 UNITS IV CONT (13:56)
[2022-05-05] MEDS: DOCUSATE SODIUM 100 MG CAPSULE PO (20:08)
[2022-05-05] MEDS: HYDROcodone/acetaminophen (*CRX) 5-325 MG TABLET 1 TAB PO (20:08)
[2022-05-05] MEDS: SIMETHICONE 80 MG TAB.CHEW PO (20:08)
[2022-05-06 00:30] VITALS: BP 127/76; PULSE 88; RESP 16; TEMP 36.8; O2SAT 99
[2022-05-06] MEDS: HYDROcodone/acetaminophen (*CRX) 5-325 MG TABLET 1 TAB PO ×3 (00:34→09:29)
[2022-05-06] MEDS: SIMETHICONE 80 MG TAB.CHEW PO ×3 (04:55→16:45)
[2022-05-06 05:20] VITALS: BP 114/66; PULSE 94; RESP 16; TEMP 36.8; O2SAT 100
[2022-05-06 05:53] LABS: Basophils Percent Auto 0.2 % (0.2-1.2); Eosinophils Absolute Auto 0.1 K/mm3 (0-0.3); Eosinophils Percent Auto 0.8 % (0-4.4); Hematocrit 30.8 % (37.0-47.0); Hemoglobin 9.7 g/dL (12.0-15.0); Immature Granulocyte Absolute 0.06 K/mm3 (0.00-0.031); Immature Granulocyte Percent A 0.5 % (0-0.5); Lymphocytes Absolute Auto 1.68 K/mm3 (0.9-3.2); Lymphocytes Percent Auto 14.5 % (18.3-44.2); Mean Corpuscular HGB Conc 31.5 g/dl (32-36); Mean Corpuscular Hemoglobin 25.9 pg (26-34); Mean Corpuscular Volume 82.1 fl (80-100); Mean Platelet Volume 11.9 fl (7.4-10.4); Monocytes Absolute Auto 0.9 K/mm3 (0.1-0.6); Monocytes Percent Auto 7.7 % (2.6-8.5); Neutrophils Absolute Auto 8.8 K/mm3 (1.3-6.7); Neutrophils Percent Auto 76.3 % (45.5-73.1); Platelet Count Result 224 k/mm3 (150-375); Red Blood Count 3.75 M/mm3 (4.2-5.4); Red Cell Distribution Width 16.5 % (11.5-14.5); White Blood Count 11.6 K/mm3 (4.5-10.0)
--- NOTE | 2022-05-06 09:15 | WPDANLDPN2 ---
Anes-Prog Note L&D Date/Time: 05/06/22 09:15 Comfortable throughout: section Neuraxial method: spinal Epidural/Spinal procedure site: clean & non-tender Neuro status: Neuro function grossly intact. Cardiovascular status: normal Respiratory status: normal Airway patency: baseline Mental status: baseline Post-Op hydration status: normal Vital Signs: Last Vital Signs Temp 36.8 C 05/06/22 05:20 Pulse 94 05/06/22 05:20 Resp 16 05/06/22 05:20 BP 114/66 05/06/22 05:20 Pulse Ox 100 05/06/22 05:20 O2 Del Method Room Air 05/05/22 15:45 Pain score (VAS): 3/10 I/O: Intake & Output 05/05/22 05/06/22 05/06/22 23:59 07:59 15:59 Intake Total 1240 500 Output Total 325 1050 Balance 915 -550 Post-procedural complaints: pruritis (Moderate, c/o less severe itching post treatment) Patient feedback: Patient satisfied with anesthetic care.
--- NOTE | 2022-05-06 09:18 | WPDANLDNPN2 ---
Anes-Prog Note L&D-Neuraxial Date/Time: 05/06/22 09:18 Neuraxial medications: intrathecal PF morphine Opiod-related complaints: pruritis Patient feedback: Patient satisfied with post-operative pain management.
[2022-05-06 09:25] VITALS: BP 114/74; PULSE 99; RESP 14; TEMP 36.6; O2SAT 100
[2022-05-06] MEDS: MULTIVIT/MIN/PREN/FOL AC/IRON TABLET 1 TAB PO (09:29)
[2022-05-06] MEDS: DOCUSATE SODIUM 100 MG CAPSULE PO ×2 (09:29→16:46)
[2022-05-06] MEDS: POLYSACCHARIDE IRON COMPLEX 150 MG CAPSULE PO (09:29)
--- NOTE | 2022-05-06 09:51 | P.PNOB_ITS ---
OB - PN: Subj Subjective Date/time seen: 05/06/22 09:51 Narrative: POD#1 Enid reports doing well today. Her bleeding is light. Her pain is controlled. She is tolerating regular diet, voiding, and has ambulated in her room without issues. She has not passed gas yet. She denies any issues with her incision. She is bottle feeding. She would like her son circumcised. OB - PN: Obj Data Labs CBC & Chem 7: 05/06/22 05:02 Labs: Laboratory Results - last 24 hr 05/05/22 05/06/22 11:46 05:02 WBC 11.6 H RBC 3.75 L Hgb 9.7 L Hct 30.8 L MCV 82.1 MCH 25.9 L MCHC 31.5 L RDW 16.5 H Plt Count 224 MPV 11.9 H Immature Gran % (Auto) 0.5 Neut % (Auto) 76.3 H Lymph % (Auto) 14.5 L Tucker % (Auto) 7.7 Eos % (Auto) 0.8 Baso % (Auto) 0.2 Lymph # (Auto) 1.68 Tucker # (Auto) 0.9 H Eos # (Auto) 0.1 Baso # (Auto) 0.0 Abs Immat Gran (auto) 0.06 H Absolute Neuts (auto) 8.8 H Absolute Nucleated RBC 0.0 Nucleated RBC % 0.0 POC Capillary Glucose 70 OB - PN A/P Assessment and Plan (1) delivery delivered: Code(s): O82 - Encounter for delivery without indication Status: Acute Plan day: 1 Plan: routine care and discharge home (tomorrow) Comments: - Pelvic rest; take meds as prescribed - Incision care/no heavy lifting - ER return precautions: fever, n/v/abd pain, bleeding, HTN Time Spent With Patient Time: Total time spent is greater than 50% in coordination of care (as documented) at patient's floor/unit and/or counseling patient: Review of Systems Constitutional: Constitutional: Denies chills, Denies fever(s) and Denies headache(s) Eyes: Eyes: Denies change in vision ENT: Denies dizziness and Denies headache(s) Cardiovascular: Cardiovascular: Denies chest pain, Denies palpitations and Denies dyspnea Respiratory: Respiratory: Denies cough and Denies dyspnea Gastrointestinal: Gastrointestinal: Denies nausea and Denies vomiting Genitourinary: Comments: normal bleeding Neurologic: Denies dizziness and Denies headache(s) Endocrine: Endocrine: Denies palpitations Exam Const: General: cooperative, comfortable and no acute distress Orientation/consciousness: patient oriented x3 Resp: Effort & Inspection: normal respiratory effort Auscultation: clear to auscultation bilaterally Cardio: Rate: regular rate GI: Inspection: non-distended and incision (covered with clean dressing) GI Palp: Yes abdominal tenderness (appropriate) and Yes Soft to palpation Auscultation: normal bowel sounds : Other: fundus firm Skin: General skin exam: normal color Neuro: General: patient oriented x3 Extrem: General: normal to inspection Psych: Appearance: grossly normal Affect: normal affect Attitude: c ooperative
[2022-05-06] MEDS: IBUPROFEN 600 MG TABLET PO (13:04)
[2022-05-06] MEDS: ACETAMINOPHEN 325 MG TABLET 650 MG PO (13:05)
[2022-05-06 13:30] VITALS: BP 114/64; PULSE 85; RESP 16; TEMP 36.8; O2SAT 100
[2022-05-06 16:40] VITALS: BP 113/69; PULSE 81; RESP 14; TEMP 36.7; O2SAT 100
[2022-05-06] MEDS: POLYSACCHARIDE IRON COMPLEX 150 MG CAPSULE (16:46)
[2022-05-06 19:00] VITALS: BP 109/69; PULSE 92; RESP 18; TEMP 36.6; O2SAT 99
[2022-05-07] VITALS: BP 120/70
[2022-05-07] MEDS: IBUPROFEN 600 MG TABLET PO ×2 (01:00→07:58)
[2022-05-07] MEDS: ACETAMINOPHEN 325 MG TABLET 650 MG PO ×2 (01:00→08:00)
[2022-05-07 03:28] VITALS: BP 132/93
[2022-05-07 07:00] VITALS: BP 112/73; PULSE 82; RESP 16; TEMP 36.8; O2SAT 100
[2022-05-07] MEDS: POLYSACCHARIDE IRON COMPLEX 150 MG CAPSULE PO (07:56)
[2022-05-07] MEDS: DOCUSATE SODIUM 100 MG CAPSULE PO (07:57)
[2022-05-07] MEDS: MULTIVIT/MIN/PREN/FOL AC/IRON TABLET 1 TAB PO (07:57)
[2022-05-07] MEDS: SIMETHICONE 80 MG TAB.CHEW PO (07:59)
--- NOTE | 2022-05-07 08:12 | PM.OBDSVD ---
DS: Admitting Diagnosis Discharge Date 05/07/22 Admitting Diagnosis Oligohydramnios A2GDM Gestational HTN Previous DS: Discharge Diagnosis Discharge Diagnosis (1) delivery delivered: Code(s): O82 - Encounter for delivery without indication Status: Acute (2) GDM, class A2: Code(s): O24.419 - Gestational diabetes mellitus in , unspecified control Status: Acute (3) Gestational HTN: Code(s): O13.9 - Gestational [-induced] hypertension without significant proteinuria, unspecified trimester Status: Acute (4) Oligohydramnios: Code(s): O41.00X0 - Oligohydramnios, unspecified trimester, not applicable or unspecified Status: Acute OB - DS: Summary OB Procedures : NST, PIH Mgmt and Ultrasound OB Procedures Intrapartum: low cervical, transverse OB Procedures: : None Peripartum Data Infant Delivery Method: Section Procedures: Procedures Operation Date: 05/05/22 12:00 Actual Procedure Side Surgeon p Repeat Section Not Applicable Anastasia Paredes MD [place] 1: Gender: Male Disposition of : home Status at Discharge Functional status at discharge: independent ambulation Overall status at discharge: patient is back to baseline Time Spent with Patient Time attestation: Total time spent providing and/or coordinating discharge services: Time spent: Less than 30 minutes Exam Const: General: cooperative, comfortable, no acute distress and obese Orientation/consciousness: patient oriented x3 Resp: Effort & Inspection: normal respiratory effort Auscultation: clear to auscultation bilaterally Cardio: Rate: regular rate GI: Inspection: non-distended and incision (c/d/i) GI Palp: No abdominal tenderness and Yes Soft to palpation Auscultation: normal bowel sounds : Other: fundus firm Skin: General skin exam: normal color Neuro: General: patient oriented x3 Extrem: General: normal to inspection Psych: Appearance: grossly normal Affect: normal affect Attitude: cooperative DS: Data Data Completed and Pending Pending studies at discharge: Pending at discharge 05/05/22 13:40 Surgical [PTH] Routine Discharge Plan Discharge Attending physician on discharge: Anastasia Paredes Discharging Clinician: Saundra James Anticipated Discharge Date/Time: 05/07/22 13:03 Patient Disposition: Home, Self-Care Activity: may shower, may drive after 2 weeks and pelvic rest Diet: regular Wound Care Instructions: incision open to air Patient Instructions: Antibiotic Form Stand Alone Forms: General Discharge Information Follow-up/Referrals: Anastasia Paredes MD [Physician] - 1 Week ( and 6 week) Discharge Medications: New acetaminophen [Mapap (acetaminophen)] 325 mg Tablet 650 mg PO Q6H PRN (Reason: Mild Pain (1-3)) Qty: 60 0RF hydrocodone-acetaminophen 5-325 mg Tablet 1 tablet PO Q3H PRN (Reason: Moderate Pain (4-6)) 3 Days Qty: 20 0RF docusate sodium 100 mg Capsule 100 mg PO BID Qty: 40 0RF ibuprofen 600 mg Tablet 600 mg PO Q6H PRN (Reason: Cramping) Qty: 40 0RF Continued prenat.vits,kerry,zof-eufj-felyx Tablet 1 tablet PO DAILY ergocalciferol (vitamin D2) 1,250 mcg (50,000 unit) capsule 50,000 unit PO WEEKLY Rx Instructions: Takes every Sunday ferrous sulfate 325 mg (65 mg iron) tablet 325 mg PO DAILY Discontinued aspirin 81 mg Tablet 81 mg PO DAILY Humulin N NPH U-100 Insulin 100 unit/mL suspension 13 unit SUBCUT HS Date of admission: 05/05/22 09:52 Primary Care Provider: Iwona Louie Admitting Provider: Anastasia Paredes Attending physician on admission: Anastasia Paredes Condition: Stable
[2022-05-08 11:49] VITALS: BP 129/81; PULSE 84; RESP 20; TEMP 37.2; O2SAT 100
== END 2022-05-07 11:15 | disposition home or self-care (01) | DRG 787 ==
LOC: ANHLDR 13:03 → ANHOB2 05-07 09:06 → ANHLDR 05-09 09:40 → ANHOB2 05-09 09:40
PROVIDERS: Admitting Provider Obstetrics & Gynecology Gynecology; PCP Advanced Practice Midwife; Visit Provider Obstetrics & Gynecology
PROC: 10D00Z1 Extraction of Products of Conception, Low, Open Approach (ICD-10-PCS; CPT 59514; principal; 2022-05-05 12:00)
DX: O34.219 Maternal care for unspecified type scar from previous cesarean delivery (principal); O41.03X0 Oligohydramnios, third trimester, not applicable or unspecified; O24.424 Gestational diabetes mellitus in childbirth, insulin controlled; Z37.0 Single live birth; Z3A.37 37 weeks gestation of pregnancy; O13.4 Gestational [pregnancy-induced] hypertension without significant proteinuria, complicating childbirth; O99.02 Anemia complicating childbirth; D64.9 Anemia, unspecified; O99.824 Streptococcus B carrier state complicating childbirth; O99.62 Diseases of the digestive system complicating childbirth; K80.20 Calculus of gallbladder without cholecystitis without obstruction
CPT/HCPCS: 36415; 59025; 82948; 85025; 86592; 86850; 86900; 86901; 88307; A9270; J0690; J2274; J2370; J2590; J7120

== ENCOUNTER 2022-07-20 10:12 | Outpatient (CLI) | payer OTHER, MEDICAID, SELFPAY ==
[2022-07-20 10:32] LABS: Hematocrit 36.3 % (37.0-47.0); Hemoglobin 11.6 g/dL (12.0-15.0)
[2022-07-20 10:41] LABS: Alanine Aminotransferase 27 U/L (6-35); Albumin Level 4.1 g/dL (3.5-5.1); Alkaline Phosphatase 85 U/L (38-126); Amylase 70 U/L (30-110); Aspartate Amino Transferase 22 U/L (14-36); Bilirubin,Total 0.3 mg/dL (0.2-1.3); Lipase 51 U/L (23-300)
== END 2022-07-20 10:13 | disposition home or self-care (01) ==
PROVIDERS: Anesthesiology; PCP Advanced Practice Midwife; Visit Provider Surgery
DX: K80.10 Calculus of gallbladder with chronic cholecystitis without obstruction (principal); D64.9 Anemia, unspecified
CPT/HCPCS: 36415; 80076; 82150; 83690; 85014; 85018

== ENCOUNTER 2022-07-27 00:32 | Day surgery (SDC) | payer OTHER, MEDICAID, SELFPAY ==
[2022-07-18 10:02] VITALS: BMI 44.6
--- NOTE | 2022-07-18 10:06 | PC.NURSE ---
Report to the Outpatient Waiting Room, entrance under the green pavilion located off [facility], at time 7:00 on date 07/27/22. Planned Procedure Time: 9:00. Time changes happen often and if your time is changed the preop area will call you the afternoon before. - You and your visitor will be asked to self-screen and do not enter if you have any COVID symptoms. - Only one visitor is requested with a max of two and NO children visitors are allowed at this time. - The patient visitor may be requested to leave or wait in car when not with patient due to distancing restrictions. - A mask is optional within the hospital at this time. Patients may have clear liquids (water, carbonated beverages, clear teas, apple juice) until 3 hours prior to surgery (6:00) with a maximum of 20 ounces. - No food from midnight until time of surgery Take the following medications with a SIP of water the morning of surgery: NONE DO NOT STOP ANY OF YOUR OTHER PRESCRIPTION MEDICATIONS PRIOR TO SURGERY?EXCEPT THE FOLLOWING Medications to discontinue per physician: N/A Date to take last dose: N/A Please no make-up, nail colombian, hairspray, perfume, deodorant, or body powder the day of surgery. No jewelry (including any body piercings) or valuables the day of surgery, leave them at home. Please take a shower or bath the night before, or the morning of, surgery with an antibacterial soap (HIBICLENS). Wear comfortable, loose fitting clothing. - Jewelry must be removed prior to entering the operating room. Rings and piercings that are not removed may be cut off. - The hospital will not accept responsibility for valuables. - Please leave all valuables, including medications, at home the day of surgery. If you are going home after surgery, a licensed ambulance driver must drive you home. - NO public transportation without another adult if you receive anesthesia. - We recommend that an adult stay with you for 24 hours following discharge. - We also recommend that you do not drive, make important decision, drink alcoholic beverages, or take any drugs that were not prescribed by your health care provider for at least 24 hours after your discharge time. Follow any additional instructions given to you from your surgeon. If you or anyone in your household have experienced Covid symptoms in the past week, please notify your surgeon or the nurse liaison at the phone number below for possible testing. Telephone instructions given to RAMIRO CASPER and asked if any additional questions and then verbalized understanding. Patient advised to call surgeon office or pre surgery nurse liaison [phone] if any additional questions.
[2022-07-27] VITALS (9 sets, daily range): BP systolic 123–164; BP diastolic 75–106; PULSE 57–83; RESP 14–18; TEMP 36.4–36.6; O2SAT 97–100
--- NOTE | 2022-07-27 07:25 | WPDHPUPDATE1 ---
History and Physical Update Update Date/Time: 07/27/22 07:25 History and Physical has been reviewed, including an updated exam of the patient. There are NO changes in the patient's condition. Risks, benefits, and alternatives have been discussed and questions answered. Patient agrees to proceed with procedure.
[2022-07-27] MEDS: LACTATED RINGERS 1,000 ML 30 ML IV CONT ×2 (07:37→10:23)
[2022-07-27] MEDS: KETOROLAC 15 MG/ML VIAL (*BKC) IV PUSH (07:38)
[2022-07-27] MEDS: ACETAMINOPHEN 500 MG TABLET 1000 MG PO (07:38)
--- NOTE | 2022-07-27 08:09 | P.PNAN_ITS ---
Anes - Initial Pre Proc Eval Procedure: Operation Date: 07/27/22 09:00 Proposed Procedures p Laparoscopic Cholecystectomy - Shari White MD Date/Time: 07/27/22 08:09 Surgeon: Shari White MD Pre Op Diagnosis: Chronic Cholecystitis with Stones Patient Data Age: 27 Gender: F Height: 1.63 m Weight: 117.9 kg Last Vital Signs Temp 36.4 C L 07/27/22 07:06 Pulse 83 07/27/22 07:06 Resp 16 07/27/22 07:06 BP 152/102 H 07/27/22 07:06 Pulse Ox 100 07/27/22 07:06 O2 Del Method Room Air 07/27/22 07:06 Allergies Allergy/AdvReac Type Severity Reaction Status Date / Time No Known Allergies Allergy Verified 07/27/22 08:00 Home Medications Medication Instructions Recorded Confirmed Type levonorgestrel-ethinyl estradiol 1 tablet PO DAILY 07/18/22 07/27/22 History 0.1 mg-20 mcg tablet (Lutera (28)) Patient hx anesthesia problems: none Family hx anesthesia problems: none Results Review: All pre-operative results and documents have been reviewed as part of the pre- operative evaluation. [facility] Past Medical History Medical History Anemia during Chlamydia 2019 Cholelithiasis Surgical History Surgical History History of delivery 08/15 37 wks, preeclampsia 6#4oz Family History Family History Grandparent Diabetes mellitus Mother Diabetes mellitus Cancer of nasal cavity and sinus Other No significant family history Social History Social History Smoking status: Never smoker Second hand tobacco smoke exposure: No Alcohol intake: current Drinks per week: 1 Substance use: current Substance use type: marijuana Other substance usage details: Marijuana prior to Living arrangements: with family Spiritual care concerns: No Anes - Eval Final PreProcedure Day of Procedure 07/27/22 08:09 Patient weight: morbidly obese Heart: regular rate and rhythm Lungs: clear to auscultation Airway: Mallampati scale class II and other (braces) Neurological: alert and oriented Last oral intake: >/= 8 hours ASA classification: III Emergent: no Anesthetic plan: proceed Anesthesia type and monitoring: general ETT and standard monitoring Results Review: All pre-operative results and documents have been reviewed as part of the pre- operative evaluation. Informed Consent: The patient's anesthetic plan and its attendant risks and benefits were discussed with the patient/family/POA. Questions were solicited and answers provided to the satisfaction of the patient/family/POA.
[2022-07-27] MEDS: ceFAZolin 2 GM/D5W 50 ML 2 GM/50 ML BAG IVPB (08:40)
[2022-07-27] MEDS: BUPIVACAINE/EPINEPHRINE 0.5% 10 ML VIAL 30 ML INFILTRATE (09:15)
--- NOTE | 2022-07-27 09:50 | W.PM.PROC2 ---
Procedure Note - Detailed Date of Procedure 07/27/22 Pre-op Diagnosis Chronic Cholecystitis with Stones Post-op Diagnosis Same Procedure Performed Laparoscopic cholecystectomy Surgeon Shari White MD Anesthesia General Indications 27-year-old female presented to the office complaining of postprandial right upper quadrant abdominal pain associated with nausea and vomiting. Workup including imaging significant for cholecystitis, cholelithiasis. Findings Cholecystitis with cholelithiasis Description of Procedure The patient was taken to the operating room placed in the supine position. After adequate induction of general anesthesia, the patient was prepped and draped in normal sterile fashion. A time-out was then performed to verify the patient's identity as well as the procedure being performed. I then made a 5 mm incision in the infraumbilical region. Through this, a Veress needle was placed into the peritoneal cavity and CO2 gas was then insufflated. After adequate pneumoperitoneum was achieved, the Veress needle was removed and a 5 mm optiview trocar was placed through this incision under direct visualization. I then placed the laparoscope through this trocar site and under direct visualization placed a further 12 mm subxiphoid port as well as 2 additional 5 mm ports in the right upper abdomen. The gallbladder was then identified and was noted to be moderately inflamed, distended, and full of gallstones. I was able to place a grasper at the dome of the gallbladder and this was retracted anterior and cephalad up over the liver. A 2nd retractor was then placed at the infundibulum and retracted laterally, this allowed visualization of the triangle of Calot. I then was able to visualize the cystic duct in its entirety from its proximal insertion into the gallbladder, to its distal junction with the common hepatic/common bile duct junction. At this point, I carefully skeletonized the proximal cystic duct with the [place] dissector. I then clipped and transected the proximal cystic duct. Next I visualized the cystic artery. Again the artery was skeletonized, clipped, and transected. I then used the Bovie cautery to take down the peritoneal attachments of the gallbladder off the liver bed. Once the gallbladder specimen was completely detached, an endo-pouch was placed through the 12 mm port site. I then placed the gallbladder specimen into the Endo pouch and removed the endo-pouch from the 12 mm port site. The specimen will now be sent to pathology for further review. I then copiously irrigated the right upper quadrant. Some mild oozing was noted in the liver bed and this was controlled with the bovie cautery. Hemostasis was noted in the liver bed, the clips were noted to be in good position on both the cystic duct stump and the cystic artery stump. No other pathology was noted in the right upper quadrant. I then moved the laparoscope to the subxiphoid port. No iatrogenic injury or other pathology was noted in the lower abdomen. I then closed the 12 mm trocar site under direct visualization using the Lorne cone and 0 Vicryl suture. At this point, the abdomen was desufflated and all ports removed. All port sites were then closed with 4.O Monocryl subcuticular sutures. Dermabond was placed on each incision. The patient tolerated the procedure well, was extubated in the operating room postoperative and will be transferred to the recovery room in stable condition Estimated Blood Loss 20 Drains No Packing No Pathology Yes Complications No immediate complications Condition Stable Disposition PACU [facility] Billing Surgery - Charge Forward: Surgery Billing
[2022-07-27] MEDS: ONDANSETRON INJ 4 MG/2 ML VIAL IV PUSH (10:13)
[2022-07-27] MEDS: fentaNYL CITRATE INJ (*CRX) 100 MCG/2 ML VIAL 25 MCG IV PUSH (10:14)
[2022-07-27] MEDS: oxyCODONE HCL (*CRX) 5 MG TAB IR PO (10:52)
[2022-07-27] MEDS: SCOPOLAMINE 1.5 MG PATCH TRANSDERM (11:22)
[2022-07-27] MEDS: diphenhydrAMINE HCl INJ 50 MG/ML VIAL 25 MG IV PUSH (11:22)
--- NOTE | 2022-07-27 12:11 | SUR.PHASEII ---
PER DR BLANCO INSTRUCT PATIENT TO FOLLOW UP WITH HER PRIMARY DOCTOR KEVIN IN REGARDS TO HIGH BLOOD PRESSURE.
== END 2022-07-27 12:20 | disposition home or self-care (01) ==
PROVIDERS: PCP Advanced Practice Midwife; Visit Provider Surgery
PROC: 0FT44ZZ Resection of Gallbladder, Percutaneous Endoscopic Approach (ICD-10-PCS; CPT 47562; principal; 2022-07-27 09:00)
DX: K80.10 Calculus of gallbladder with chronic cholecystitis without obstruction (principal); E66.01 Morbid (severe) obesity due to excess calories; Z68.41 Body mass index [BMI] 40.0-44.9, adult
CPT/HCPCS: 47562; 36415; 86850; 86900; 86901; 88304; A9270; J0690; J1100; J1200; J1885; J2250; J2405; J2704; J2710; J3010; J7030; J7120